=== PATIENT | female | born 1950 | race Caucasian/White ===

== ENCOUNTER 2016-12-26 13:21 | Emergency (ER) | payer OTHER ==
[~2016-12-26] VITALS: Ht 160 cm; Wt 72.5 kg
[2016-12-26 13:35] VITALS: Ht 160 cm; Wt 72.5 kg
[2016-12-26] MEDS ORDERED: KETOROLAC 30 MG INJ IM STA (15:23)
--- NOTE | 2016-12-26 16:34 | RADRPT ---
PROCEDURE: XR Ankle. CLINICAL INDICATION: Ankle pain TECHNIQUE: Three views of the right ankle are available for review COMPARISON: None available FINDINGS: There is no acute osseous or articular abnormality. No evidence for fracture. Bone mineral density is preserved. The articular surfaces are smooth without evidence of marginal erosions. Enthesopathi c changes are seen about the calcaneus. The ankle mortise is preserved. Moderate soft tissue swelli ng is noted. IMPRESSION: 1. No acute osseous abnormality. 2. Soft tissue swelling. RPTAT: EE .Emiliano Campo MD, MD Date Time Electronically viewed and signed by .Emiliano Campo MD, MD on 12/26/2016 16:33 .d/
[2016-12-26] MEDS ORDERED: NAPR-260 PO (16:42)
--- NOTE | 2016-12-26 16:53 | ERD ---
ER Documentation Chief Complaint Date/Time DATE: 12/26/16 TIME: 16:50 Chief Complaint RIGHT ANKLE PAIN,SWELLING X 3WEEKS HPI Patient is a 66-year-old female who presents to the ED with right ankle pain and bilateral foot pain on and off for the last year. She states that she has pain on her medial malleolus of her right ankle. She states that the soles of both of her feet hurt. She states that for her job she stands over 10 hours a day. She states that she has gone to a store sales leader and was given cortisone shots which did not help with her symptoms. She states that she wants to go to another store sales leader. Denies fever or chills. Denies leg pain. States that she is able to ambulate but does have pain when she applied a lot of pressure. Denies calf swelling or calf pain. Denies shortness of breath. Denies recent travel or recent surgeries. Denies past history of DVTs or clots. ROS All systems reviewed and are negative except as per history of present illness. Medications Home Meds Active Scripts Naproxen* (Naprosyn*) 500 Mg Tablet, 500 MG PO BID Y for PAIN AND/OR INFLAMMATION, #30 TAB Prov:HARRIETT GREEN PA-C 12/26/16 PMhx/Soc Medical and Surgical Hx: pt denies Medical Hx History of Surgery: Yes (CHOLECYSTECTOMY, RIGHT BREAST BIOPSY X2 BENIGN GROWTH) Anesthesia Reaction: No Hx Neurological Disorder: No Hx Respiratory Disorders: No Hx Cardiac Disorders: No Hx Psychiatric Problems: No Hx Miscellaneous Medical Probl: No Hx Alcohol Use: No Hx Substance Use: No Hx Tobacco Use: No Smoking Status: Never smoker FmHx Family History: No coronary disease, No diabetes, No other Physical Exam Vitals Vital Signs Date Time Temp Pulse Resp B/P Pulse Ox O2 Delivery O2 Flow Rate FiO2 12/26/16 13:35 98.2 97 18 133/73 98 Physical Exam GENERAL: Well-developed, well-nourished female. Appears in no acute distress. HEAD: Normocephalic, atraumatic. EYES: Pupils are equally reactive bilaterally. EOMs grossly intact. No conjunctival erythema. ENT: Moist mucous membranes. No uvula deviation. No kissing tonsils. No exudates. NECK: Supple. No lymphadenopathy or thyromegaly. No meningismus. negative kernig. negative brudinski. LUNG: Clear to auscultation bilaterally. No rhonchi, wheezing, rales or coarse breath sounds. HEART: Regular rate and rhythm. No murmurs, rubs or gallops. ABDOMEN: No scars, ecchymosis or rashes noted. Soft, nontender, and nondistended. Positive bowel sounds in all four quadrants. No rebound tenderness , no guarding. (-) McBurneys point tenderness. No CVA tenderness. BACK: No midline tenderness. Extremities: Equal pulses bilaterally. No peripheral clubbing, cyanosis or edema. No unilateral leg swelling. Tenderness to the medial malleoli of the right foot. Negative Homans sign. No palpable cord. No warmth or swelling or erythema. No step-offs or deformities. NEUROLOGIC: Alert and oriented. Moving all four extremities. 5/5 strength in all extremities. Normal speech. unSteady gait. SKIN: Normal color. Warm and dry. No rashes or lesions. Capillary refill < 2 seconds Results 24 hrs Current Medications Medications (Trade) Dose Ordered Sig/Ke Route PRN Reason Start Time Stop Time Status Last Admin Dose Admin Ketorolac Tromethamine (Toradol) 30 mg ONCE STAT IM 12/26/16 15:23 12/26/16 15:24 DC 12/26/16 16:03 Procedures/MDM ER COURSE: I kept the patient and/or family informed of laboratory and diagnostic imaging results throughout the emergency room course. IMAGING STUDIES [place] [address] Radiology Main Line: [phone] DIAGNOSTIC IMAGING REPORT Patient: MARY CHEUNG : 1950 Age: 66 Sex: F MR #: [id number] DOS: 12/26/16 1523 Ordering MD: HARRIETT GREEN PA-C Location: [facility] Room/Bed: PROCEDURE: XR Ankle. CLINICAL INDICATION: Ankle pain TECHNIQUE: Three views of the right ankle are available for review COMPARISON: None available FINDINGS: There is no acute osseous or articular abnormality. No evidence for fracture. Bone mineral density is preserved. The articular surfaces are smooth without evidence of marginal erosions. Enthesopathic changes are seen about the calcaneus. The ankle mortise is preserved. Moderate soft tissue swelling is noted. IMPRESSION: 1. No acute osseous abnormality. 2. Soft tissue swelling. RPTAT: EE .Emiliano Campo MD, MD Date Time Electronically viewed and signed by .Emiliano Campo MD, MD on 12/26/2016 16:33 .d/ CC: HARRIETT GREEN PA-C MEDICATIONS Toradol. Tolerated well with no adverse reaction. PROCEDURES Alfonso wrap. Neurovascularly intact post Alfonso placement. MEDICAL DECISION MAKING: This is a 66-year-old female who presents with right ankle pain and bilateral foot pain. Vital signs were reviewed. Patient is afebrile. Patient is not hypoxic. Patient is not toxic or ill-appearing. Patient has ankle pain of unknown etiology. Patient also has plantar fasciitis. Low suspicion for dislocation, fracture, septic joint, compartment syndrome, osteomyelitis, avascular necrosis, DVT, Achilles tendon rupture, cellulitis. At this time, unable to rule out any tendon and ligament injuries. DISCHARGE: At this time, patient is stable for discharge and outpatient management with no new complaints during the ER course. Patient was sent home with Alfonso wrap, Naprosyn and to follow-up with her primary care provider to get a referral to a store sales leader. Note for work was also given.. Patient will be discharged home with instructions to recheck for new or worsening symptoms such as fever, nausea , weakness, LOC and to follow up with primary care in the next 1-2 days. Patient was advised to return to the ER for any new or worsening symptoms. Plan was discussed and patient and/or family understands and agrees. Home instructions were given. Departure Diagnosis: Primary Impression: Plantar fasciitis, bilateral Additional Impression: Ankle pain Laterality: right Chronicity: chronic Qualified Code: M25.571 - Chronic pain of right ankle Condition: Stable Patient Instructions: What Is Plantar Fasciitis? [facility] Usted se mccormick hecho un examen mdico de control que le indica que no est en [place] condicin que requiera tratamiento urgente en el Departamento de Emergencia. Un estudio ms profundo y el tratamiento de bazan condicin pueden esperar sin ningn riesgo hasta que usted sea atendida/o en el consultorio de bazan mdico o [place] cl ashley. Es responsabilidad suya arreglar [place] may[place] para el seguimiento del danielle. MANEJO DE CONDICIONES NO URGENTES EN EL FUTURO 1) Si usted tiene un mdico de atencin primaria: Usted debera llamar a bazan mdico de atencin primaria antes de venir al departamento de emergencia. Despus de las horas de consultorio, bazan doctor o bazan asociado/a est disponible por telfono. El mdico o enfermero de samaria en el servicio telefnico puede asesorarle por mary medio para atender el problema, o danielle contrario se puede programar [place] may[place]. 2) Si usted no tiene un mdico de atencin primaria: Llame al mdico o clnica de referencia que aparece abajo angella las horas de consultorio para hacer [place] may[place] para que le vean. CLINICAS: [facility] [phone] [facility] [phone] [address] [facility] [facility] [phone] [facility] [place] [phone] [facility] [place] [phone] [address] [facility]. [phone] [address] Additional Instructions: Llame al doctor MAANA y geraldine [place] MAYA PARA DENTRO DE 1-2 CR.Dgale a la secretaria que nosotros le instruimos hacer esta maya.Avise o llame si bazan condicin se empeora antes de la maya. Regresa aqui si peor o no mejor. HARRIETT GREEN PA-C Dec 26, 2016 16:53
== END 2016-12-26 16:55 | disposition home or self-care (01) ==
LOC: FTE 13:21
DX: M72.2 Plantar fascial fibromatosis (principal)
CPT/HCPCS: 73610; 96372; J1885; Z7502